=== PATIENT | female | born 1950 | race Asian ===

== ENCOUNTER 2017-01-18 02:23 | Emergency (ER) | payer BC ==
[2017-01-18 02:33] VITALS: TEMP 98; O2SAT 98
[2017-01-18] MEDS ORDERED: SODIUM CHLORIDE 0.9% (FLUSH) 10 ML SYG IV PRN (02:46)
[2017-01-18] MEDS ORDERED: METOPROLOL TARTRATE INJ 5 MG/5 ML VIAL IV ONE (02:46)
--- NOTE | 2017-01-18 02:54 | ED.PDOC ---
History of Present Illness - General Chief Complaint: Blood Pressure Problem Stated Complaint: elevated blood pressure Time Seen by Provider: 01/18/17 02:40 Source: patient, RN notes reviewed, Vital Signs reviewed, family Exam Limitations: language barrier - History of Present Illness Initial Comments: Patient is a 66 y/o female with a history of elevated blood pressure. Systolic BP has been in the 150s for awhile, and her doctor recently raised her losartan to 100 mg PO BID. Last night, her blood pressure got even higher, systolic 209. Her blood pressure was fine earlier (in the 150s), but this evening around 1900, it again became elevated to over 200 systolic. She took her losartan at 2300, and has taken an additional losartan about 15 minutes ago without the BP decreasing at all. She has mild chest discomfort on the left when she lays down, and she feels "strange" in both of her lower arms. She denies any SOB, headache or nausea. Timing/Duration: 4-6 hours, other - Was also elevated last night Severity: moderate, severe Improving Factors: nothing Worsening Factors: nothing Associated Symptoms: other - light-headedness Allergies/Adverse Reactions: Allergies NO KNOWN ALLERGY Allergy (Verified 04/04/15 09:50) Home Medications: Ambulatory Orders Clonidine HCl 0.1 mg PO ONCE PRN #10 tab 01/18/17 Hydrochlorothiazide 25 mg PO DAILY #30 tab 01/18/17 Losartan Potassium 100 mg PO BID 01/18/17 Metformin HCl 500 mg PO BID 01/18/17 Sulfamethoxazole-Trimethoprim [Bactrim Ds 800-160 mg] 1 tab PO BID #10 tab 01/18 Review of Systems - Review of Systems Constitutional: States: no symptoms reported. Denies: fever EENTM: States: no symptoms reported Respiratory: States: no symptoms reported. Denies: orthopnea, short of breath Cardiology: States: chest pain - discomfort Gastrointestinal/Abdominal: States: no symptoms reported. Denies: nausea Musculoskeletal: States: no symptoms reported Skin: States: no symptoms reported Neurological: States: tingling, other - light-headedness Endocrine: States: no symptoms reported Hematologic/Lymphatic: States: no symptoms reported All other Systems: Reviewed and Negative Past Medical History (General) - Patient Medical History Hx Seizures: No Hx Stroke: No Hx Dementia: No Hx Asthma: No Hx of COPD: No Hx Cardiac Disorders: No Hx Congestive Heart Failure: No Hx Pacemaker: No Hx Hypertension: Yes Hx Thyroid Disease: No Hx Diabetes: No Hx Gastroesophageal Reflux: No Hx Renal Disease: No Hx Cancer: No Hx of HIV: No Hx Hepatitis C: No Hx MRSA: No - Vaccination History Hx Tetanus, Diphtheria Vaccination: No Hx Influenza Vaccination: No Hx Pneumococcal Vaccination: No Immunizations Up to Date: No - Social History Hx Tobacco Use: No Hx Chewing Tobacco Use: No Hx Alcohol Use: No Hx Substance Use: No Hx Substance Use Treatment: No Hx Depression: No Hx Physical Abuse: No Hx Emotional Abuse: No Hx Suspected Abuse: No - Female History Patient is a Female of Child Bearing Age (10 -59 yrs old): No Patient : No Family Medical History - Family History Mother Family History: Unknown Living Status: Physical Exam - Physical Exam General Appearance: Alert, Comfortable, No apparent distress Eye Exam: bilateral normal Ears, Nose, Throat: hearing grossly normal, normal ENT inspection Neck: supple Respiratory: lungs clear, normal breath sounds, no respiratory distress, no accessory muscle use Cardiovascular/Chest: regular rate, rhythm, no edema, no gallop, no murmur Gastrointestinal/Abdominal: normal bowel sounds, non tender, soft, no organomegaly Extremity: normal range of motion, non-tender, normal inspection, no pedal edema , no calf tenderness, normal capillary refill Neurologic: alert, normal mood/affect Skin Exam: normal color, warm/dry Progress - Results/Orders Results/Orders: 01/18/17 02:26 Temperature 98.0 F Respiratory 18 Rate Blood Pressure 216/120 [Right Arm] O2 Sat by Pulse 98 Oximetry BP at 0400: 164/102 -- no chest pain, no shortness of breath 01/18/17 02:46 IV Care:Saline Lock per Protoc QSHIFT Telemetry .ONCE Sodium Chloride 0.9% (Flush) [Saline Flush Syringe] 10 ml IV PRN PRN EKG Stat Pulse Ox Stat 01/18/17 03:25 URINE CULTURE W/COLONY COUNT Stat Laboratory Results WBC 6.2 K/mm3 (4.8-10.8) 01/18/17 03:20 RBC 5.24 M/mm3 (4.20-5.40) 01/18/17 03:20 Hgb 15.1 gm/dL (12.0-16.0) 01/18/17 03:20 Hct 44.7 % (36.0-47.0) 01/18/17 03:20 MCV 85.3 fl (81.0-99.0) 01/18/17 03:20 MCH 28.9 pg (27.0-31.0) 01/18/17 03:20 MCHC 33.9 g/dL (33.0-37.0) 01/18/17 03:20 RDW 13.2 % (11.5-14.5) 01/18/17 03:20 Plt Count 151 K/mm3 (130-400) 01/18/17 03:20 MPV 8.4 fl (7.40-10.4) 01/18/17 03:20 Absolute Neuts (auto) 3.70 K/uL (1.8-6.8) 01/18/17 03:20 Absolute Lymphs (auto) 1.70 K/uL (1.0-3.4) 01/18/17 03:20 Absolute Monos (auto) 0.40 K/uL (0.2-0.8) 01/18/17 03:20 Absolute Eos (auto) 0.30 K/uL (0.0-0.4) 01/18/17 03:20 Absolute Basos (auto) 0.10 K/uL (0.0-0.1) 01/18/17 03:20 Neutrophils % 59.9 % (42.0-78.0) 01/18/17 03:20 Lymphocytes % 26.7 % (20.0-50.0) 01/18/17 03:20 Monocytes % 7.1 % (2.0-9.0) 01/18/17 03:20 Eosinophils % 5.4 % (1.0-5.0) H 01/18/17 03:20 Basophils % 0.9 % (0.0-2.0) 01/18/17 03:20 PT 12.2 SECONDS (9.4-12.5) 01/18/17 03:20 INR 1.080 01/18/17 03:20 PTT (SP) 34.1 SECONDS (25.1-36.5) 01/18/17 03:20 D-Dimer, Quantitative < 230 ng/mL (0-230) 01/18/17 03:20 Sodium 140 mmol/L (135-145) 01/18/17 03:20 Potassium 3.6 mmol/L (3.6-5.0) 01/18/17 03:20 Chloride 105 mmol/L (101-111) 01/18/17 03:20 Carbon Dioxide 31 mmol/L (21-31) 01/18/17 03:20 Anion Gap 7.6 (12-18) L 01/18/17 03:20 BUN 9 mg/dL (7-18) 01/18/17 03:20 Creatinine 0.51 mg/dL (0.6-1.3) L 01/18/17 03:20 BUN/Creatinine Ratio 17.6 (10-20) 01/18/17 03:20 Random Glucose 154 mg/dL (70-105) H 01/18/17 03:20 Serum Osmolality 281.2 mOsm/L (275-295) 01/18/17 03:20 Calcium 9.1 mg/dL (8.4-10.2) 01/18/17 03:20 Magnesium 2.0 mg/dL (1.8-2.5) 01/18/17 03:20 Total Bilirubin 1.5 mg/dL (0.2-1.0) H 01/18/17 03:20 Direct Bilirubin 0.2 mg/dL (0-0.2) 01/18/17 03:20 Indirect Bilirubin 1.3 mg/dL (0.2-0.8) H 01/18/17 03:20 AST 22 IU/L (10-42) 01/18/17 03:20 ALT 17 IU/L (10-60) 01/18/17 03:20 Alkaline Phosphatase 85 IU/L (42-121) 01/18/17 03:20 Creatine Kinase 139 IU/L (26-140) 01/18/17 03:20 CK-MB (CK-2) 2.2 ng/mL (0.0-4.4) 01/18/17 03:20 CK-MB (CK-2) % Not Reportable 01/18/17 03:20 Troponin I < 0.02 ng/mL (0.01-0.05) 01/18/17 03:20 B-Natriuretic Peptide 17.3 pg/ml (0-100) 01/18/17 03:20 Serum Total Protein 7.6 gm/dL (6.4-8.2) 01/18/17 03:20 Albumin 4.4 g/dl (3.2-5.5) 01/18/17 03:20 Urine Color Yellow (Yellow) 01/18/17 03:25 Urine Appearance Clear (Clear) 01/18/17 03:25 Urine pH 7.0 (4.5-7.8) 01/18/17 03:25 Ur Specific Phillips 1.010 (1.005-1.030) 01/18/17 03:25 Urine Protein Negative mg/dL 01/18/17 03:25 Urine Glucose (UA) Negative mg/dL (Negative) 01/18/17 03:25 Urine Ketones Negative mg/dL (NEGATIVE) 01/18/17 03:25 Urine Blood Negative (Negative) 01/18/17 03:25 Urine Nitrite Negative 01/18/17 03:25 Urine Bilirubin Negative (NEGATIVE) 01/18/17 03:25 Urine Urobilinogen 0.2 mg/dL (0.2-1.0) 01/18/17 03:25 Ur Leukocyte Esterase Small (Negative) H 01/18/17 03:25 Urine RBC 0-1 /hpf 01/18/17 03:25 Urine WBC 1-3 /hpf 01/18/17 03:25 Ur Epithelial Cells 0-1 /hpf 01/18/17 03:25 Urine Bacteria 0 01/18/17 03:25 - EKG/XRAY/CT EKG: Sinus - 66 bpm, no ST T wave changes, Unchanged from - 04/04/2015 Comments: NML axis, NML intervals--NML EKG XRAY: chest - No acute process Departure - Departure Clinical Impression: Hypertensive urgency Time of Disposition: 04:12 Disposition: Discharge to Home or Self Care Condition: Fair Departure Forms: ED Discharge - Pt. Copy, Patient Portal Self Enrollment Instructions: DI for High Blood Pressure Diet: low salt diet Referrals: [facility] [Physicians] - 1-5 Days Prescriptions: Clonidine HCl 0.1 mg PO ONCE PRN #10 tab PRN Reason: See Comments Below Hydrochlorothiazide 25 mg PO DAILY #30 tab Sulfamethoxazole-Trimethoprim [Bactrim Ds 800-160 mg] 1 tab PO BID #10 tab Home Medications: Ambulatory Orders Clonidine HCl 0.1 mg PO ONCE PRN #10 tab 01/18/17 Hydrochlorothiazide 25 mg PO DAILY #30 tab 01/18/17 Losartan Potassium 100 mg PO BID 01/18/17 Metformin HCl 500 mg PO BID 01/18/17 Sulfamethoxazole-Trimethoprim [Bactrim Ds 800-160 mg] 1 tab PO BID #10 tab 01/18 Additional Instructions: Take Clonidine for blood pressure over 180. If blood pressure does not decrease to less than 180 after 1 hour, come to ER. Come to ER for ANY chest pain or shortness of breath. Call PCP to schedule appointment within 5 days.
[2017-01-18] MEDS ORDERED: cloNIDine HCL 0.1 MG TAB PO ONE (03:32)
--- NOTE | 2017-01-18 03:33 | RAD ---
EXAM: Single view chest. INDICATION: Chest pain. COMPARISON: Chest x-ray: 04/04/2015. FINDINGS: Cardiac silhouette: At the upper limit of normal in size Cassandra: Unremarkable. Lobar consolidation: None. Pleural effusion: None. Pneumothorax: None. Other: None. Bones: Unremarkable. Other: None. IMPRESSION: 1. No acute cardiopulmonary process. Electronically signed by: Chaitanya Munoz MD 01/18/2017 3:32 AM CDT
[2017-01-18] MEDS ORDERED: SULFA/TRIMETH 800/160 (DS) TAB 1 EA TAB PO ONE (04:16)
[2017-01-18 05:02] VITALS: BP 172/100
== END 2017-01-18 05:02 | disposition home or self-care (01) ==
LOC: ER 02:23
DX: I16.0 Hypertensive urgency (principal); Z79.899 Other long term (current) drug therapy